=== PATIENT | male | born 1980 | race Caucasian/White ===

== ENCOUNTER 2019-03-05 13:23 | Emergency (ER) | payer MEDICAID ==
[~2019-03-05] VITALS: Ht 165.1 cm; Wt 71.0 kg
--- NOTE | 2019-03-05 13:33 | NUR ---
seizure pads on.jailhome health caregiver at bedside.
--- NOTE | 2019-03-05 13:39 | NUR ---
awaiting ED md.
[2019-03-05] MEDS ORDERED: fentaNYL/PF 50MCG/1 ML 2ML syringe IV ONE (14:00)
[2019-03-05] MEDS ORDERED: propofol 10mg/ml 20ml vial IV ONE (14:00)
--- NOTE | 2019-03-05 14:25 | NUR ---
PER EPOXY SPECIALIST MARLINE CHARLTON/BALTA IS AWARE THAT PATIENT IS HERE AND AMDE AWARE THAT WE ARE DOING MODERATE SEDATION.
--- NOTE | 2019-03-05 14:40 | NUR ---
1430: 100MCG GIVEN BY DR. MCFADDEN 1440:ADDITIONAL 50MCG OF PROPOFOL GIVEN BY DR. MCFADDEN.
--- NOTE | 2019-03-05 14:46 | NUR ---
RADIOLOGY AT BEDSIDE.
--- NOTE | 2019-03-05 14:56 | NUR ---
PATIENT ABLE TO OPEN EYES ABLE TO REPORT(USING SIGN LANGUAGE) TO CAREGIVER IF IN PAIN.
[2019-03-05] MEDS ORDERED: HYDR-3965 PO (15:00)
[2019-03-05 15:13] VITALS: BP 139/101
== END 2019-03-05 15:16 | disposition home or self-care (01) ==
LOC: ER 13:24
DX: S42.291A Other displaced fracture of upper end of right humerus, initial encounter for closed fracture (principal); R56.9 Unspecified convulsions; H91.90 Unspecified hearing loss, unspecified ear; F70 Mild intellectual disabilities; Z79.899 Other long term (current) drug therapy; W18.39XA Other fall on same level, initial encounter; Y93.89 Activity, other specified; Y92.89 Other specified places as the place of occurrence of the external cause; Y99.8 Other external cause status
CPT/HCPCS: 23650; 73020; 73030; 96374; 99152; 99285; J2704; J3010; 99283

== ENCOUNTER 2021-09-05 19:41 | Emergency (ER) | payer MEDICAID ==
[~2021-09-05] VITALS: Ht 160 cm; Wt 146.0 kg
[2021-09-05] MEDS ORDERED: TETanus/Pertussis (Acell)/Diphther VAC/PF (Tdap-Adult) 0.5ml syringe IMVAC ONE (20:15)
[2021-09-05] MEDS ORDERED: LIDOcaine 1% W/epiNEPHrine 1:200,000 10ml vial IJ ONE (20:15)
[2021-09-05] MEDS ORDERED: LIDOcaine 1% w/EPI 1:100,000 30ml vial (MDV) IJ ONE (20:20)
[2021-09-05] MEDS ORDERED: Levetiracetam-NS 500mg/100ml 100 ML IV ONE (21:05)
[2021-09-05] MEDS ORDERED: levetiracetam inj 500 MG in normal saline 1000ml 100 ML IV ONE (21:05)
[2021-09-05] MEDS ORDERED: acetaminophen 325mg tablet PO ONE (23:30)
[2021-09-05] MEDS ORDERED: KEP500T PO (23:56)
[2021-09-06 00:25] VITALS: BP 135/78
== END 2021-09-06 00:28 | disposition home or self-care (01) ==
LOC: ER 19:42
DX: S02.85XA Fracture of orbit, unspecified, initial encounter for closed fracture (principal); S01.81XA Laceration without foreign body of other part of head, initial encounter; R56.9 Unspecified convulsions; M50.20 Other cervical disc displacement, unspecified cervical region; W19.XXXA Unspecified fall, initial encounter; Y93.89 Activity, other specified; Y92.89 Other specified places as the place of occurrence of the external cause; Y99.8 Other external cause status
CPT/HCPCS: 70450; 70486; 72125; 82948; 90471; 90715; 96365; 99285; J1953